=== PATIENT | female | born 1945 | race Caucasian/White ===

== ENCOUNTER 2024-07-28 14:00 | Outpatient (CLI) | payer MEDICARE, OTHER | END 2024-07-28 14:01 | disposition home or self-care (01) | LOC: BICMAMMO 14:00 | PROVIDERS: ATTEND Internal Medicine | DX: Z78.0 Asymptomatic menopausal state (principal); M81.0 Age-related osteoporosis without current pathological fracture | CPT/HCPCS: 77080 ==